=== PATIENT | male | born 1955 | race Caucasian/White ===

== ENCOUNTER 2017-12-20 21:07 | Inpatient (IN) | payer OTHER, MEDICARE ==
[~2017-12-20] VITALS: Ht 180.3 cm; Wt 124.7 kg
[2017-12-20 21:08] VITALS: BP 160/64
[2017-12-20] MEDS ORDERED: PLAVIX 75 MG TA75 M1 PO (21:17)
[2017-12-20] MEDS ORDERED: ELIQUIS5 MG PO (21:18)
[2017-12-20] MEDS ORDERED: NEURONTIN 300M300 M2 PO (21:18)
[2017-12-20] MEDS ORDERED: CYMBALTA20 MG PO (21:20)
[2017-12-20] MEDS ORDERED: WELLBUTRIN 75 M75 M1 PO (21:20)
[2017-12-20 21:22] LABS: ABSOLUTE EOSINOPHILS 0.1 thou/uL (0.0-0.7); ABSOLUTE LYMPHOCYTES 1.4 thou/uL (0.8-5.3); ABSOLUTE MONOCYTES 0.3 thou/uL (0.0-1.2); ABSOLUTE NEUTROPHILS 6.7 thou/uL (1.6-8.1); BASOPHILS 0.5 %; EOSINOPHILS 1.6 %; HEMATOCRIT 43.5 % (42.0-52.0); HEMOGLOBIN 14.7 gm/dL (14.0-18.0); LYMPHOCYTES 16.4 %; MCH 32.2 pg (26.0-34.0); MCHC 33.7 g/dL (28.0-37.0); MCV 95.5 fL (80.0-100.0); MONOCYTES 3.4 %; MPV 9.1 fl. (7.2-11.1); NUCLEATED RBCS 0 /100WBC; PLATELET COUNT* 168 thou/uL (150-400); POLYS 78.1 %; RBC 4.56 mil/uL (4.50-6.00); WBC 8.6 thou/uL (4.0-11.0)
[2017-12-20] MEDS ORDERED: ADVAIR HFA 230M12 GM INH (21:22)
[2017-12-20] MEDS ORDERED: SPIRIVA (21:22)
[2017-12-20] MEDS ORDERED: RANEXA500 MG (21:26)
[2017-12-20 21:30] LABS: ANION GAP 8 mmol/L (7-16); BUN 19 mg/dL (7-18); CALCIUM 9.5 mg/dL (8.5-10.1); CHLORIDE 103 mmol/L (98-107); CO2 28 mmol/L (21-32); CREATININE 1.3 mg/dL (0.6-1.3); GLUCOSE 248 mg/dL (70-99); POTASSIUM 3.6 mmol/L (3.5-5.1); SODIUM 139 mmol/L (136-145)
[2017-12-20] MEDS ORDERED: POTASSIUM20 PO (21:32)
[2017-12-20] MEDS ORDERED: METFORMIN HCL500 MG PO (21:32)
[2017-12-20] MEDS ORDERED: LASIX 40 MG TAB40 M2 PO (21:32)
[2017-12-20 21:41] LABS: ALBUMIN 3.8 g/dL (3.4-5.0); ALKALINE PHOSPHATASE 63 U/L (46-116); NT-PRO BRAIN NAT PEPTIDE 70 pg/mL (<300); SGOT 21 U/L (15-37); SGPT 33 U/L (30-65); TOTAL BILIRUBIN 0.3 mg/dL (<0.1-1.0); TOTAL PROTEIN 7.5 g/dL (6.4-8.2); TROPONIN-I LEVEL <0.06 ng/mL (<0.06)
[2017-12-20 22:48] VITALS: BP 140/65
[2017-12-21] VITALS (20 sets, daily range): BP systolic 14–148; BP diastolic 48–72
[2017-12-21 05:45] LABS: HEMATOCRIT 43.1 % (42.0-52.0); HEMOGLOBIN 14.3 gm/dL (14.0-18.0); MCH 31.8 pg (26.0-34.0); MCHC 33.1 g/dL (28.0-37.0); MPV 9.1 fl. (7.2-11.1); RBC 4.49 mil/uL (4.50-6.00); RDW-CV 13.8 % (10.5-14.5)
[2017-12-21 07:02] LABS: ALBUMIN 3.7 g/dL (3.4-5.0); CALCIUM 9.2 mg/dL (8.5-10.1); CREATININE 1.4 mg/dL (0.6-1.3); POTASSIUM 4.1 mmol/L (3.5-5.1); TOTAL BILIRUBIN 0.3 mg/dL (<0.1-1.0); TOTAL PROTEIN 6.7 g/dL (6.4-8.2)
[2017-12-21 08:23] LABS: CHOLESTEROL 158 mg/dL (<200); HDL CHOLESTEROL 44 mg/dL (>40); LDL CHOLESTEROL 80 mg/dL (<100); TC:HDL 3.6 Ratio (Not establshd); TRIGLYCERIDE 173 mg/dL (<150); VLDL 35 mg/dL (<40)
[2017-12-21 08:24] LABS: SERUM ASSESSMENT Clear
[2017-12-21] MEDS ORDERED: NITROGLYCERIN0.4 MG SUBLING (10:07)
[2017-12-21] MEDS ORDERED: ZANTAC 150MG T150 MG PO (10:14)
[2017-12-21] MEDS ORDERED: PROTONIX40 M1 PO (10:14)
[2017-12-21] MEDS ORDERED: SPIRIVA INH (10:15)
[2017-12-21] MEDS ORDERED: ADVAIR 250-501 EACH INH (10:15)
[2017-12-21] MEDS ORDERED: IMDUR 30 MG TAB30 M1 PO (10:17)
[2017-12-21] MEDS ORDERED: ALPRAZOLAM 0.50.5 M1 PO (10:17)
[2017-12-21] MEDS ORDERED: ROBAXIN 750 MG750 M1 PO (10:18)
[2017-12-21] MEDS ORDERED: PRAVACHOL40 MG PO (10:18)
[2017-12-21] MEDS ORDERED: REGLAN 10 MG TA10 MG PO (10:18)
--- NOTE | 2017-12-21 10:47 | EKG ---
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1955 Requested By: Darlene Brar Order Number: [id number] MD: Víctor Farias Measurements Intervals [place] Rate: 85 P: 87 AL: 187 QRS: -3 QRSD: 108 T: 76 QT: 368 QTc: 438 Interpretive Statements Sinus rhythm Abnormal R-wave progression, early transition Baseline wander in lead(s) V6 No previous ECG available for comparison Electronically Signed On 12-21-2017 10:47:36 CDT by Víctor Farias [email or web address] <ELECTRONICALLY SIGNED> By: Víctor Farias MD, [facility] 12/21/17 1047 11 11 Víctor Farias MD, FAC /EPI
--- NOTE | 2017-12-21 14:34 | 2DMMODE ---
[place] [address] 2 D/M-MODE ECHOCARDIOGRAM Name: PARKNA Jeimy Room: 008-P [facility] IN [facility]#: [id number] Admission: 12/20/17 Attend Phys: Jake Zambrano Discharge: Date of : 53 Date of Service: 12/21/17 1434 Report #: [id number] THIS REPORT FOR: //name// APPROVED REPORT Study performed: 12/21/2017 11:15:02 EXAM: Comprehensive 2D, Doppler, and color-flow Echocardiogram Patient Location: In-Patient Room #: 008 Status: routine BSA: 2.36 HR: 75 bpm BP: 134/67 mmHg Rhythm: NSR Other Information Study Quality: Good Indications Chest Pain 2D Dimensions LVEF(%): 68.53 (>50%) IVSd: 12.53 (7-11mm) LVOT Diam: 22.02 (18-24mm) LVDd: 46.40 mm PWd: 11.23 (7-11mm) Ascending Ao: 42.37 (22-36mm) LVDs: 28.65 (25-40mm) Aortic Root: 30.44 mm Alcantar's LVEF: 68.53 % Volumes Left Atrial Volume (Systole) LA ESV Index: 35.30 mL/m2 Aortic Valve AoV Peak Cheo.: 1.27 m/s AO Peak Gr.: 6.46 mmHg LVOT Max P.90 mmHg AO Mean Gr.: 3.46 mmHg LVOT Mean P.42 mmHg LVOT Max V: 1.11 m/s AO V2 VTI: 26.84 cm LVOT Mean V: 0.72 m/s CITLALLI (VTI): 4.02 cm2 LVOT V1 VTI: 28.35 cm Mitral Valve E/A Ratio: 1.44 [place] [address] 2 D/M-MODE ECHOCARDIOGRAM Name: PARKNA Room: [address] IN .R.#: [id number] Admission: 12/20/17 Attend Phys: Jake Zambrano Discharge: Date of : 53 Date of Service: 12/21/17 1434 Report #: [id number] MV Decel. Time: 178.19 ms MV E Max Cheo.: 0.93 m/s MV PHT: 51.67 ms MVA (PHT): 4.26 cm2 TDI E/Lateral E': 5.17 E/Medial E': 7.15 Medial E' Cheo.: 0.13 m/s Lateral E' Cheo.: 0.18 m/s Pulmonary Valve PV Peak Cheo.: 1.48 m/s PV Peak Gr.: 8.75 mmHg Tricuspid Valve TR Peak Gr.: 33.56 mmHg RVSP: 38.00 mmHg Left Ventricle The left ventricle is normal size. very mild inferolateral hypokinesis, poor endocardial definition, but otherwise there is normal LV segmental wall motion There is normal left ventricular wall thickness. Left ventricular systolic function is normal. The left ventricular ejection fraction is within the normal range. LVEF is 55-60%. The left ventricular diastolic function is normal. Right Ventricle The right ventricle is normal size. The right ventricular systolic function is normal. Atria The left atrium size is normal. Right atrium is at the upper limits of normal. Aortic Valve The aortic valve is normal in structure. No aortic regurgitation is present. There is no aortic valvular stenosis. Mitral Valve The mitral valve is normal in structure. Trace mitral regurgitation. No evidence of mitral valve stenosis. Tricuspid Valve The tricuspid valve is normal in structure. Trace tricuspid regurgitation. The RVSP is 35-40 mmHg. Pulmonic Valve The pulmonary valve is normal in structure. [place] [address] 2 D/M-MODE ECHOCARDIOGRAM Name: PARKGABRIELANA Jeimy Room: [address] IN M.R.#: [id number] Admission: 12/20/17 Attend Phys: Jake Zambrano Discharge: Date of : 53 Date of Service: 12/21/17 1434 Report #: [id number] valvular regurgitation. Great Vessels The aortic root is normal in size. IVC is normal in size and collapses with >50% inspiration Pericardium There is no pericardial effusion. <Conclusion> LVEF is 55-60%. very mild inferolateral hypokinesis, poor endocardial definition, but otherwise there is normal LV segmental wall motion There is no aortic valvular stenosis. No aortic regurgitation is present. Trace mitral regurgitation. Trace tricuspid regurgitation. The RVSP is 35-40 mmHg. <ELECTRONICALLY SIGNED> By: Chung Mosqueda MD, FACC 12/21/17 1434 1434 1434 Chung Mosqueda MD, FACC /INF
--- NOTE | 2017-12-21 15:09 | EKG ---
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1955 Requested By: Jake Zambrano Order Number: [id number] MD: Chung Mosqueda Measurements Intervals [place] Rate: 82 P: 35 OR: 177 QRS: -22 QRSD: 106 T: 58 QT: 385 QTc: 450 Interpretive Statements Sinus rhythm Borderline left axis deviation Abnormal R-wave progression, early transition Baseline wander in lead(s) V4 Compared to ECG 12/20/2017 21:12:48 No significant changes Electronically Signed On 12-21-2017 15:09:02 CDT by Chung Mosqueda [email or web address] <ELECTRONICALLY SIGNED> By: Chung Mosqueda MD, FAC 12/21/17 1509 230 230 Chung Mosqueda MD, FAC /EPI
[2017-12-22] VITALS (19 sets, daily range): BP systolic 104–150; BP diastolic 58–75
[2017-12-22 03:46] LABS: HEMATOCRIT 38.3 % (42.0-52.0); HEMOGLOBIN 12.9 gm/dL (14.0-18.0); MCH 32.2 pg (26.0-34.0); MCHC 33.6 g/dL (28.0-37.0); MCV 95.6 fL (80.0-100.0); MPV 8.7 fl. (7.2-11.1); RBC 4.01 mil/uL (4.50-6.00); RDW-CV 13.8 % (10.5-14.5)
[2017-12-22 03:55] LABS: INR 1.1; PROTIME 10.5 Seconds (9.20-11.50)
[2017-12-22 04:22] LABS: CALCIUM 9.3 mg/dL (8.5-10.1); CREATININE 1.3 mg/dL (0.6-1.3); MAGNESIUM 2.2 mg/dL (1.8-2.4); POTASSIUM 4.8 mmol/L (3.5-5.1)
[2017-12-22] MEDS ORDERED: SORINE 80 MG TA80 M1 PO (10:47)
--- NOTE | 2017-12-22 17:37 | CARD ---
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 Manufacturing Operator, Leilani Snow RN Medicare Sales Representative, Meghana Luna, Boone Simpson (R) Scrub Procedures Performed cathArt Access - R femoral artery* Left Heart Cath Coronaries, Bypass Grafts [id number] [facility] Supravalvular Aortography Injection [id number] ISVA , Right transradial approach Indication Dyspnea, Unstable angina Risk Factors Arterial Hypertension, Hypercholesterolemia, Coronary Artery Disease, Diabetes Previous Procedures/Diagnoses Previous CABGPrevious PCI Procedure Narrative The patient was brought electively to the Cardiac Catheterization Laboratory and was prepped and draped in a sterile manner. The right femoral was infiltrated with 1% Lidocaine subcutaneous anesthesia. A 6 fr sheath was inserted into the right femoral artery. Coronary angiography was performed using coronary diagnostic catheters. The right coronary system was accessed and visualized with a Diagnostic catheter. The left coronary system was accessed and visualized with a Diagnostic catheter. The left ventricle was accessed and visualized with a Diagnostic catheter. Left ventricular/Aortic Valve gradient assessed via catheter pullback. Left ventriculogram was performed in BILLS projection. An aortogram of the ascending aorta was performed. Pre-demployment femoral angiogram was performed . Closure device was deployed with a 6 Fr Mynx. The patient tolerated the procedure well and there were no complications [place] [address] CARDIAC CATH REPORT Name: PARKNA Jeimy Room: [address] IN ..#: [id number] Admission: 12/20/17 Attend Phys: Nicolas Lind Discharge: Date of : 53 Report #: [id number] was no hematoma. Jr4 catheter used to visualize the svg to rca. SVG to circumflex previously had been noted to be occluded. A stump could not be identified during this study. SANCHEZ catheter was used for the SANCHEZ graft, however, because of tortuosity, the ostium could not be cannulated. A flush injection of the SANCHEZ graft was performed. An aortic root injection was performed with a pigtail catheter. Intraoperative Conscious Sedation Sedation start time: 1535 Case end Time: 1618 Dose: 1846 mGy Contrast Type and Amount: Visipaque 310 ml Coronary Angiography The patient's coronary anatomy is co- dominant. [place] Artery Percent Stenosis Grafts (Complete if Previous CABG=Yes: Percent Stenosis) SVG to distal RCA was patent. SVG to CX could not be identified. Flush injection of SANCHEZ graft showed the graft to be patent. Diagnostic Cath Left Main Stent in distal left main extended into circumflex and was patent LAD 90% ostial stenosis, and 60% after the 1st diagonal Diagonal 1 50% mid stenosis Circumflex stent extending from the left main was patent. OM2 60% ostial stenosis L PDA noted to be a medium sized vessel and had a 99% mid stenosis Right Coronary stent noted proximally and rca appeared to be chronically occluded just beyond the stent Left Ventriculography The left ventricle is normal in size with normal contractility. The left ventricular ejection fraction is estimated to be 55-60%. Left ventricular wall motion abnormalities are not present. There is no mitral insufficiency. aortic root injection showed no aortic insufficiency, and only one patent vein graft Hemodynamics The aortic pressure is 159/75 mmHg with a mean of 84 mmHg. The left ventricular pressure is 166/12 mmHg with a mean of mmHg. The left ventricular end diastolic pressure is 30 mmHg[place] [address] CARDIAC CATH REPORT Name: PARKNA Room: [address] IN M.R.#: [id number] Admission: 12/20/17 Attend Phys: Nicolas Lind Discharge: Date of : 53 Report #: [id number] across the aortic valve upon pullback. Pullback from the left ventricle to the aorta revealed no gradient across the aortic valve. Conclusion 1. patent stent in the left main artery that extended into circumflex artery 2. SVG to circumflex appeared to be occluded 3. patent sanchez graft to the lad 4. patent svg to rca 5. 99% stenosis of a medium sized JAIRO branch of the distal circumflex Recommendations consider stenting of the small JAIRO branch for angina refractory to medical therapy <ELECTRONICALLY SIGNED> By: Víctor Farias MD, [facility] 12/22/17 1737 173 173Dasarah Farias MD, [facility] /INF
[2017-12-23 04:58] VITALS: BP 148/76
[2017-12-23 05:47] LABS: CALCIUM 8.9 mg/dL (8.5-10.1); CREATININE 1.2 mg/dL (0.6-1.3); POTASSIUM 4.2 mmol/L (3.5-5.1)
[2017-12-23 07:30] VITALS: BP 129/56
--- NOTE | 2017-12-23 10:56 | CON ---
[address] [address] CONSULTATION Name: NA NICK Room: [address] IN M.R.#: [id number] Admission: 12/20/17 Attend Phys: Nicolas Lind Discharge: Date of : 53 Report #: [id number] THIS REPORT FOR: //name// CC: Bryant Zambrano PRIMARY EMBEDDED DEVELOPER: Dr. Marley, [place]. PCP: Dr. Bryant Valles. CHIEF COMPLAINT: Chest pain and shortness of breath. HISTORY OF PRESENT ILLNESS: The patient is a 62-year-old man with a history of multivessel coronary artery disease and atrial fibrillation and respiratory disease, who presents with acute onset of chest discomfort yesterday. It occurred at rest. It was associated with shortness of breath. In the emergency room, his ECG did not show any acute ST segment abnormalities. It was severe enough that he had taken nitroglycerin without relief after 2 nitro. His symptoms of chest discomfort were left-sided and nonradiating. He was started on IV heparin and nitroglycerin drips and his symptoms have resolved for the most part overnight. The patient has a history of atrial arrhythmias and is anticoagulated with both Plavix and a novel agent and he did take his Eliquis dose yesterday morning. It was held overnight. Presently, he is in sinus rhythm. He denies chest pain this morning. He has been short of breath, but this is more chronic. The patient has a history of heavy tobacco use. In the emergency room, an x-ray did demonstrate a small pleural effusion and possible pneumonic infiltrate. He admits he had been coughing for several days, possibly a month. He is an active smoker. From a cardiovascular standpoint, he is on 2 anticoagulants, Plavix and Eliquis, and he has been compliant with them. PAST MEDICAL HISTORY: Significant for the following: Records from Dr. Marley, his usual agronomist were obtained overnight and his last cardiac catheterization was performed approximately 6 months ago and also in 06/2017. I was able to obtain the June study, which demonstrated a patent SANCHEZ to LAD and patent vein graft to PDA. The vein graft to circumflex is occluded. He had a history of bypass in 2009. He had PCI prior to this. He had a PCI of the left main and circumflex with drug-eluting stents. They are both 38 mm long. He has a history of DVT with IVC filter, has history of atrial arrhythmias. He has sleep apnea, COPD. He has an abdominal aortic aneurysm, has a history of MRSA, LASHAWN, cervical radiculitis, cervical spinal stenosis, chronic back pain[place] [address] CONSULTATION Name: PAKRGABRIELANA Jeimy Room: [address] IN M.R.#: [id number] Admission: 12/20/17 Attend Phys: Nicolas Lind Discharge: Date of : 53 Report #: [id number] ALLERGIES: NEOPRENE, but no known drug allergies to contrast dye or aspirin. SOCIAL HISTORY: He is an everyday smoker, has done so for about 45 years. Drinks once or twice per week. FAMILY HISTORY: Positive for multiple sclerosis. PAST SURGICAL HISTORY: CABG, PCI, esophageal dilatation. MEDICATIONS: Plavix 75 mg daily, nitroglycerin, Protonix, ranitidine, Spiriva, Eliquis 5 mg twice daily, Lasix 20 mg daily, Imdur 30 mg daily, potassium chloride 10 mEq daily, pravastatin 80 mg daily, gabapentin 300 mg daily, Flexeril, metoclopramide. REVIEW OF SYSTEMS: PULMONARY: Positive dyspnea with exertion, positive cough. CARDIOVASCULAR: Positive chest discomfort, no palpitations. ALLERGIES: No aspirin or contrast allergies. PSYCHIATRIC: Positive depression. Positive anxiety. MUSCULOSKELETAL: Positive arthritis. SKIN: No rashes. EARS, NOSE, THROAT AND MOUTH: No decreased hearing. No bleeding from nose, positive dentures. GASTROINTESTINAL: No hematemesis or melena. No dysphagia. No black colored stools. NEUROLOGIC: No syncope or seizures. Denies slurred speech, numbness or weakness. PHYSICAL EXAMINATION: VITAL SIGNS: Blood pressure is 126/57, pulse is 84, and temperature is 36.9. GENERAL: This is a pleasant, moderately obese, middle-aged male. He is pleasant, in no apparent distress. He is resting comfortably with a CPAP mask on. HEENT: Eyes: EOMs are intact. No facial asymmetry. NECK: Supple. No jugular venous distention. CARDIOVASCULAR: Regular. I cannot hear a rub, murmur or gallop. LUNGS: Diminished breath sounds bilaterally. ABDOMEN: Soft and nontender. EXTREMITIES: No peripheral edema. EKG from [place] showed a sinus rhythm with subtle inferior ST-segment depression, lot of artifact though. Our ECG from the Emergency Department showed a sinus rhythm with resolution of the ST-segment changes and normal ST-T wave segments in the sinus rhythm. LABORATORY DATA: Her hemoglobin is , white blood count is 8.0, platelet [facility] [address] [place] [address] CONSULTATION Name: NA NICK Room: [address] IN [facility].#: [id number] Admission: 12/20/17 Attend Phys: Nicolas Lind Discharge: Date of : 53 Report #: [id number] count 153,000. Sodium is 146, potassium 4.1, chloride is 110, BUN is 20, creatinine is 1.4. AST is 27.8, ALT is 21. Troponin I is 0.06 x 3 sets. NT-proBNP is 70. Hemoglobin is . Chest x-ray reveals mild heterogeneous peripheral left lower lobe opacities, could represent pneumonia. There is also blunting of left costophrenic angle and small pleural effusion. Followup x-ray in 4-6 weeks is recommended. IMPRESSION: 1. Unstable angina. There were very subtle EKG changes on his transfer electrocardiogram from the Emergency Department, but presenting ECG in our Emergency Department in the ICU, did not show any dynamic ST segment abnormalities. He has been compliant with his antiplatelet therapy, Plavix. Given that his symptoms occurred at rest and unrelieved with nitroglycerin and were relieved with an IV nitroglycerin drip and heparin, I think he should be studied with a coronary arteriogram. However, he had been on his Eliquis less than 24 hours ago and unless his clinical status changes, I would prefer to wait another 24 hours before proceeding with a coronary arteriogram. In the meantime, we will continue with aspirin, heparin and Plavix and hold his Eliquis. 2. Paroxysmal atrial fibrillation, presently he is in a sinus rhythm. We will continue with sotalol. We will resume anticoagulation post-procedurally. 3. Coronary artery disease, status post CABG. As noted above, he has 2 of his 3 grafts known to be patent, has SANCHEZ to LAD and the vein graft to the PDA. 4. Status post PCI, we were able to obtain reports from June cardiac catheterization; at that time, the stents in the left main and circumflex were patent. 5. Tobacco use. Cessation was strongly recommended. 6. An abnormal chest x-ray, cough. This may represent pneumonia. I will defer it to our hospital colleagues regarding antibiotics. 7. Oral anticoagulation; as noted above, we have held his Eliquis. 8. Renal insufficiency. This is very mild. We will start him on IV fluids prior to the cardiac catheterization and we will monitor this post-procedurally. 9. History of DVT; as noted above, we will resume his anticoagulation as soon as possible. 10. History of descending thoracic aortic aneurysm, apparently it measured 3.4 cm. We will defer as this surrounds to his usual agronomist. <ELECTRONICALLY SIGNED> By: Chung Mosqueda MD, FACC 12/23/17 1056 1027 [id number] Mosqueda MD, FACC /nt
[2017-12-23 11:17] VITALS: BP 129/56
[2017-12-23] MEDS ORDERED: RANEXA500 MG PO (11:35)
== END 2017-12-23 12:30 | disposition home or self-care (01) | DRG 286 ==
LOC: M.ERS 21:07 → M.TBA-ER 22:31 → M.ERS 22:31 → M.ICU 23:21 → M.TBA-ER 23:21 → M.ICU 23:25 → M.ERS 12-21 → M.ICU 12-21 → M.TBA-ER 12-21 00:13 → M.ICU 12-21 00:13 → M.2W 12-22 18:37
PROVIDERS: Emergency Medicine; Internal Medicine; Internal Medicine Cardiovascular Disease; Nurse Practitioner Family; ADMIT Internal Medicine
PROC: 4A023N7 Measurement of Cardiac Sampling and Pressure, Left Heart, Percutaneous Approach (ICD-10-PCS; principal; 2017-12-22)
PROC: B215YZZ Fluoroscopy of Left Heart using Other Contrast (ICD-10-PCS; principal; 2017-12-22)
PROC: B211YZZ Fluoroscopy of Multiple Coronary Arteries using Other Contrast (ICD-10-PCS; principal; 2017-12-22)
PROC: B213YZZ Fluoroscopy of Multiple Coronary Artery Bypass Grafts using Other Contrast (ICD-10-PCS; 2017-12-22)
DX: I25.110 Atherosclerotic heart disease of native coronary artery with unstable angina pectoris (principal); I50.33 Acute on chronic diastolic (congestive) heart failure; I24.9 Acute ischemic heart disease, unspecified; I13.0 Hypertensive heart and chronic kidney disease with heart failure and stage 1 through stage 4 chronic kidney disease, or unspecified chronic kidney disease; J44.9 Chronic obstructive pulmonary disease, unspecified; I10 Essential (primary) hypertension; F17.210 Nicotine dependence, cigarettes, uncomplicated; I48.0 Paroxysmal atrial fibrillation; N18.2 Chronic kidney disease, stage 2 (mild); F32.9 Major depressive disorder, single episode, unspecified; I25.5 Ischemic cardiomyopathy; G47.33 Obstructive sleep apnea (adult) (pediatric); Z79.899 Other long term (current) drug therapy; Z95.1 Presence of aortocoronary bypass graft